=== PATIENT | male | born 1930 | race Caucasian/White ===

== ENCOUNTER 2016-11-05 08:35 | Day surgery (SDC) | payer MEDICARE ==
[~2016-11-05] VITALS: Ht 182.9 cm; Wt 91.0 kg
[2016-11-05] MEDS ORDERED: PLEASE ENTER ALLERGIES MC SCH ×2 (09:30)
[2016-11-05] MEDS ORDERED: PLEASE ENTER HEIGHT AND WEIGHT MC SCH (09:30)
[2016-11-05 10:10] VITALS: BP 132/90
[2016-11-05] MEDS ORDERED: CIPROFLOXACIN/PMX 400MG/200ML 200 ML IVPB ONE (10:30)
[2016-11-05] MEDS ORDERED: FLUMAZENIL 0.1 MG/1 ML, 5ML ONE (10:49)
[2016-11-05] MEDS ORDERED: FENTANYL PF 100 MCG/2ML ONE (10:49)
[2016-11-05] MEDS ORDERED: NALOXONE 1 MG/ML, 2ML ONE (10:49)
[2016-11-05] MEDS ORDERED: MIDAZOLAM 1 MG/ML, 5ML ONE (10:49)
[2016-11-05] MEDS ORDERED: LIDOCAINE 1%, 20ML ONE ×2 (10:49→10:56)
== END 2016-11-05 13:52 ==
LOC: OUT 08:35
PROVIDERS: ATTEND Urology
DX: R33.9 Retention of urine, unspecified (principal)
CPT/HCPCS: 75989; 76942; 99156; 99157; C1725; C1769; J2250; J3010; J3490; J2310